=== PATIENT | female | born 1970 | race Caucasian/White ===

== ENCOUNTER 2019-10-14 14:29 | Emergency (ER) | payer BC, OTHER ==
[~2019-10-14] VITALS: Ht 165.1 cm; Wt 69.0 kg
[2019-10-14] MEDS ORDERED: phenazopyridine 100mg tablet PO ONE (15:00)
[2019-10-14 15:06] LABS: CLARITY,URINE CLEAR (Clear); COLOR,URINE YELLOW (Yellow); GLUCOSE, URINE NEGATIVE (Neg); KETONES,URINE NEGATIVE (Neg); LEUKOCYTE ESTERASE ,URINE TRACE (Neg); NITRITES, URINE NEGATIVE (Neg); OCCULT BLOOD,URINE NEGATIVE (Neg); PH,URINE 6.5 (4.8-8.0); PROTEIN,URINE NEGATIVE (Neg); URINE HCG NEGATIVE (NEG); UROBILINOGEN,URINE 0.2 E.U/dL (0.2-1.0)
[2019-10-14 15:10] LABS: UA COLLECTION TYPE CLN CATCH MIDSTREAM
[2019-10-14 15:18] LABS: SQUAMOUS EPITHELIAL CELL,UR FEW /LPF (FEW)
[2019-10-14 15:21] LABS: BACTERIA,URINE 1+ /HPF (Neg); RBC,URINE NONE SEEN /HPF (0-2)
[2019-10-14 15:22] LABS: WBC,URINE 0-4 /HPF (0-4)
--- NOTE | 2019-10-14 17:28 | NUR ---
pt prepped for vag exam
[2019-10-14] MEDS ORDERED: METR500T PO (19:13)
[2019-10-14 19:41] VITALS: BP 133/86
--- NOTE | 2019-10-17 09:50 | NUR ---
Attempted to call patient regardig lab results and possible need to change abx. Patient did not answer; left voicemail.
== END 2019-10-14 19:42 | disposition home or self-care (01) ==
LOC: ER 14:29
DX: N76.0 Acute vaginitis (principal); B96.89 Other specified bacterial agents as the cause of diseases classified elsewhere; E11.9 Type 2 diabetes mellitus without complications; Z88.0 Allergy status to penicillin; Z88.2 Allergy status to sulfonamides; Z88.1 Allergy status to other antibiotic agents; Z79.899 Other long term (current) drug therapy
CPT/HCPCS: 36415; 76830; 76856; 81001; 81025; 87077; 87088; 87186; 87210; 87491; 93976; 99284